=== PATIENT | female | born 1990 | race Caucasian/White ===

== ENCOUNTER 2016-12-22 07:57 | Emergency (ER) | payer SELFPAY ==
[~2016-12-22] VITALS: Ht 157.5 cm; Wt 63.5 kg
[2016-12-22 08:43] LABS: Basophils # (auto) 0.1 uL; Basophils % (auto) 0.7 % (0.0-2.0); Eosinophils # (auto) 0 uL; Eosinophils % (auto) 0.2 % (0.0-7.0); Hematocrit 45.1 % (36.0-46.0); Hemoglobin 15.4 g/dL (12.2-16.2); Lymphocytes # (auto) 2.3 uL; Lymphocytes % (auto) 24.2 % (10.0-50.0); Mean Corpuscular Hemoglobin 30.7 pg (28.0-32.0); Mean Corpuscular Hgb Conc. 34.2 g/dL (32.0-36.0); Mean Corpuscular Volume 89.8 fL (80.0-100.0); Mean Platelet Volume 8.2 fL (6.9-10.8); Monocytes # (auto) 0.6 uL; Monocytes % (auto) 6.1 % (0.0-12.0); Neutrophils # (auto) 6.5 uL; Neutrophils % (auto) 68.8 % (37.0-80.0); Nucleated Red Blood Cells % 0.1 %; Platelet Count (auto) 279 10^3/uL (140-450); Red Cell Distribution Width 13.1 % (11.8-14.3); White Blood Cell 9.4 10^3/uL (4.4-10.8)
[2016-12-22 09:02] LABS: Albumin 4.5 g/dL (3.4-5.0); BUN/Creatinine Ratio 19.8; Bilirubin, Total 1.5 mg/dL (0.2-1.0); Calcium 9.1 mg/dL (8.5-10.1); Potassium 3.3 mmol/L (3.5-5.1); Total Protein 8.4 g/dL (6.4-8.2)
[2016-12-22 09:05] LABS: Urine Bilirubin Negative (Negative); Urine Blood 3+ /uL (Negative); Urine Glucose Normal (Normal); Urine Ketone 1+ (Negative); Urine Mucus FEW (None Seen); Urine Nitrite Negative (Negative); Urine RBC 7 /hpf (0 - 4); Urine Squamous Epithelial Cell MOD /hpf (<5); Urine pH 6.5 (5.0-8.0)
[2016-12-22 09:26] LABS: Urine Color Yellow (Yellow)
[2016-12-22] MEDS ORDERED: SODIUM CHLORIDE 0.9% 1,000 ML IV ONE (09:40)
[2016-12-22] MEDS ORDERED: KETOROLAC TROMETH 30 MG/ML 1ML VIAL IV ONE (09:45)
[2016-12-22] MEDS ORDERED: POTASSIUM CHL 10% (20 MEQ/15ML) 15ml ORAL SOLN PO ONE (09:45)
[2016-12-22] MEDS ORDERED: ONDANSETRON HCL 4 MG/2 ML VIAL IV ONE (09:45)
[2016-12-22] MEDS ORDERED: NITROFURANTOIN (MONO) 100 mg CAP PO ONE (09:45)
[2016-12-22] MEDS ORDERED: PROMETHAZINE HCL 25 MG/ML 1ML ONE (10:24)
[2016-12-22] MEDS ORDERED: PROMETHAZINE HCL 25 MG/ML 1ML IV ONE (10:30)
[2016-12-22 11:33] VITALS: BP 155/94
== END 2016-12-22 11:35 | disposition home or self-care (01) ==
LOC: ER 07:57
DX: N39.0 Urinary tract infection, site not specified (principal); F19.10 Other psychoactive substance abuse, uncomplicated
CPT/HCPCS: 36415; 74176; 80053; 80307; 81001; 81025; 82150; 83690; 85025; 96361; 96374; 96375; 99285; J1885; J2405; J2550; J7030